=== PATIENT | female | born 1975 | race Caucasian/White ===

== ENCOUNTER 2021-02-04 05:35 | Day surgery (SDC) | payer OTHER ==
[2021-02-01 09:43] LABS: COVID AG,FIA SOURCE NASOPHARYNGEAL
[~2021-02-04] VITALS: Ht 162.6 cm; Wt 90.9 kg
[~2021-02-04 05:35] MED LIST: BUSP30TA2 PO; CITA40TA6 PO; DULO20CA27 PO; RINGERS SOLUTION,LACTATED 1,000 ML IV ONE
[2021-02-04] MEDS ORDERED: FentaNYL CITRATE PF 100 MCG/2 ML VIAL IVP ONE (05:36)
[2021-02-04] MEDS ORDERED: PHENYLEPHRINE HCL 10 MG/ML VIAL IVP ONE (05:36)
[2021-02-04] MEDS ORDERED: MIDAZOLAM HCL 2 MG/2 ML VIAL IVP ONE (05:36)
[2021-02-04] MEDS ORDERED: LIDOCAINE/PF 2% 5 ML VIAL IM ONE (05:36)
[2021-02-04] MEDS ORDERED: SODIUM CL IRRIG SOLN BAG 3,000 ML IRRIG ONE (06:22)
[2021-02-04] MEDS ORDERED: LIDOCAINE/PF 1% 30 ML VIAL ONE (06:22)
[2021-02-04] MEDS ORDERED: BUPIVACAINE HCL/PF 0.25% 30 ML VIAL ONE ×2 (06:22→06:47)
[2021-02-04] MEDS ORDERED: BACITRACIN 50,000 UNITS/VIAL ONE (06:23)
[2021-02-04] MEDS ORDERED: BUPIVACAINE HCL/PF 0.5% 30 ML VIAL ONE (06:47)
== END 2021-02-04 09:57 | disposition home or self-care (01) ==
LOC: SURGERY 05:35
PROVIDERS: ATTEND Podiatrist Primary Podiatric Medicine
DX: M72.2 Plantar fascial fibromatosis (principal); M20.41 Other hammer toe(s) (acquired), right foot; G47.33 Obstructive sleep apnea (adult) (pediatric); F41.9 Anxiety disorder, unspecified; E66.01 Morbid (severe) obesity due to excess calories; F32.9 Major depressive disorder, single episode, unspecified; G89.18 Other acute postprocedural pain; Z79.899 Other long term (current) drug therapy; Z98.890 Other specified postprocedural states; Z90.710 Acquired absence of both cervix and uterus; Z88.8 Allergy status to other drugs, medicaments and biological substances; Z91.040 Latex allergy status; Z91.041 Radiographic dye allergy status
CPT/HCPCS: 28060; 64450; 87426; C9803; J0690; J2250; J2370; J3010; J3490 ×5; J7120